=== PATIENT | male | born 1955 | race Two or more races ===

== ENCOUNTER 2025-05-07 05:54 | Emergency (ER) | payer MEDICARE, MEDICAID, SELFPAY ==
[2025-05-07] VITALS (18 sets, daily range): BP systolic 88–111; BP diastolic 49–70; PULSE 82–89; RESP 12–18; TEMP 36.4–36.9; O2SAT 96–100; BMI 25.1
--- NOTE | 2025-05-07 06:20 | XR_ITS ---
Examination: AP chest single view Technique one AP portable semiupright chest single view Date and time: May 07, 2025, 0628 hrs. Indications: Shortness of breath today Findings: Mild prominence left ventricle Transcatheter aortic valve Transvenous dual-chamber bipolar cardiac leads satisfactory position Prominent vascular congestion with early septal edema Prominent osteopenia Impression: Early heart failure
--- NOTE | 2025-05-07 06:21 | PD.EDADULT ---
ED General RME/HPI General Chief complaint: Shortness of Breath/Dyspnea Stated complaint: SOB Time Seen by Provider: 05/07/25 06:09 Arrival date/time: 05/07/25 05:54 RME / HPI RME / HPI narrative: 69-year-old male here for evaluation of syncopal episode while having dialysis this morning. Per EMS report patient was having dialysis just started when he was noted to drop his pressure down to the 60s and become unresponsive. This lasted for about 4 minutes prior to arrival of EMS. Upon arrival of EMS he was on nasal cannula O2, GCS of 6, shallow respirations, they briefly bagged him before patient started to come around within another 3 to 4 minutes. Patient had been given 1250 mL of saline up to this point which was stopped at that time. Patient then brought in for evaluation. Patient himself notes that he is feeling well at this time, does not remember what happened, is having no symptoms. Notes that he is not on oxygen at home. Related Data Home Medications ?Medication ?Instructions ?Recorded ?Confirmed midodrine 10 mg tablet 10 mg PO TID 10/21/20 05/03/23 diphenhydramine HCl 25 mg capsule 25 mg PO QPM 11/29/22 05/03/23 (Banophen) sucroferric oxyhydroxide 500 mg 500 mg PO TID 12/03/22 05/03/23 chewable tablet (Velphoro) Allergies Allergy/AdvReac Type Severity Reaction Status Date / Time No Known Allergies Allergy Verified 05/01/23 12:07 Review of Systems Review of Systems Systems Reviewed: All systems reviewed, normal except as documented Past Medical History Past Medical History Comments PMH COMMENT: End-stage renal disease on dialysis, mitral valve stenosis, third-degree AV block, diverticulosis ED Exam Narrative Physical exam: Constitutional: Awake, alert, nontoxic, no acute distress HEENT: Normocephalic, atraumatic, extraocular movements intact. Neck: Supple CV: Regular rate and rhythm, no murmurs/rubs/gallops Lungs: Rales noted to bilateral mid to lower lung hay Abd: Soft, NT, ND, colostomy present to left lower abdomen Extremities: No deformities, no edema noted Neuro: AAOx3, no acute neuro deficit noted. Skin: Warm, dry, intact Course Course Course Narrative: 619h: 69-year-old male here for evaluation of a syncopal episode that occurred during dialysis. It appears that patient blood pressure dropped causing the syncope and as he was resuscitated his blood pressure came back up and mentation improved back to baseline. He was given over a liter of IV fluids and did not get dialysis done however. On initial exam he does have crackles to mid to lower lung hay and his sats are noted to be low to mid 80s on room air. He is not on oxygen at home. Will require dialysis. Will notify nephrology regarding same to see if we can get dialysis done today. 1600h: Patient has returned from dialysis, no further complaints, stable condition, will DC home. Quality Measures none Orders Category Date Time Status Hemodialysis Urgent Care 05/07/25 11:48 Active Insert IV NOW Care 05/07/25 06:20 Active Consult to Nephrology Stat Cons 05/07/25 12:22 Ordered XR chest 1V portable Stat Exams 05/07/25 06:20 Completed CBC Stat Lab 05/07/25 07:10 Completed CMP [Comprehensive Metabolic Panel] Stat Lab 05/07/25 07:10 Completed Magnesium Stat Lab 05/07/25 07:10 Completed Albumin Human-Kjda 25% Ivpb [Albuminex 25% Ivpb] Med 05/07/25 12:22 Active 25 gm in 100 ml IV PRN Epoetin Paul-Epbx Inj [Retacrit Inj] Med 05/07/25 14:30 Discontinued 10,000 unit SC X1 ONE Vital Signs Vital signs: Vital Signs Temperature 97.6 F 05/07/25 06:19 Pulse Rate 84 05/07/25 06:19 Respiratory Rate 16 05/07/25 06:19 Blood Pressure 89/62 L 05/07/25 06:19 Pulse Oximetry (%) 97 05/07/25 06:19 Oxygen Delivery Method Nasal Cannula 05/07/25 06:19 Oxygen Flow Rate 3 05/07/25 06:19 Discharge Plan Plan Patient Disposition: HOME (Self Care) Patient condition on transfer: Stable Prescriptions/Referrals Prescriptions/Med Rec: No Action midodrine 10 mg Tablet 10 mg PO TID Rx Instructions: held if sbp greater than 100 diphenhydramine HCl [Banophen] 25 mg capsule 25 mg PO QPM Patient Comments: TOME 1 C PSULA POR V A ORAL EN LA NOCHE CUANDO SEA NECESARIO FOR ALLERGY SYMPTOMS Velphoro 500 mg Tablet,Chewable 500 mg PO TID Rx Instructions: with meals Referrals: No Primary/Family,Physician [Primary Care Provider] - In 1 week Problem List Clinical Impression: Hypotension of hemodialysis, ESRD (end stage renal disease) on dialysis Patient/Caregiver Discharge Instructions Education Materials: ED Diet for Chronic Kidney Disease, ED Low Blood Pressure, All Causes Additional Instructions: Some general health principles that can help you are the [employer] START principles: Nutrition (eat a plant-based diet, avoiding meats in general, avoiding highly processed foods) Exercise (Daily exercise/walks as tolerated) Water (Drink adequate fresh water to maintain hydration, concentrating on water rather than on soda, coffee, tea, juice, etc for hydration) [place] (Spend time - 15-20 minutes or so with skin exposed in the beveller operator and late evening sun for Vitamin D health benefits) [place] (Avoid alcohol, illicit drugs, caffeinated beverages, smoking, etc) Air (Deep breathing exercises in the early mornings in fresh air) Rest (Adequate rest at night, going to bed a few hours before midnight and avoiding all screens/television/loud music in the time right before going to bed, also avoiding heavy meals just prior to going to bed) Trust in God (Spend time daily in Bible study and prayer - health benefits in contemplation of God's true character) Additional resources that can benefit: www.[employer], look under resources and seminars. Print Language: Romanian Stand Alone Forms: Georgina Award Info., Patient Portal Info Letter MDM Clinical Information Provided by: patient and EMS Medical Records reviewed [facility] and EMS Meds/Rx considered, not ordered None Labs/Rad/Tests considered, not ordered None Chronic Illness/Social Conditions which may negatively complicate care or outcome(s)-explain: CHF/CAD/Cardiac illness Labs Labs: see narrative above Imaging Imaging interpretation: see narrative above Medication Administration(s) Medication Administration History Albumin Human (Albuminex 25% Ivpb) 25 gm in 100 mls @ 100 mls/min IV PRN PRN PRN Reason: DIALYSIS Stop: 06/06/25 12:21 Last Admin: 05/07/25 12:48 Dose: 100 mls/min Documented By: MM Discontinued Medications Epoetin Paul (Epoetin Paul-Epbx Inj 10,000 Unit/Ml Vial (Esrd)) 10,000 unit SC X1 ONE Stop: 05/07/25 14:31 Last Admin: 05/07/25 15:19 Dose: 10,000 unit Documented By: MM See above Diagnosis Diagnoses ruled out and/or further discussions: Hypotension of hemodialysis ESRD
[2025-05-07 07:24] LABS: Basophils # (Auto) 0.0 Thou/mm3 (0.0-0.2); Basophils % (Auto) 0 % (0-2.5); Eosinophils # (Auto) 0.1 Thou/mm3 (0.0-0.5); Eosinophils % (Auto) 1 % (0-10); Hematocrit 29.9 % (41.0-53.0); Hemoglobin 10.5 g/dL (13.5-16.0); Immature Granulocytes Auto 0.03 Thou/mm3 (0.00-0.00); Lymphocytes # (Auto) 0.7 Thou/mm3 (1.0-4.8); Lymphocytes % (Auto) 9 % (10-50); Mean Corpuscular HGB Conc 35.1 g/dl (31.0-37.0); Mean Corpuscular Hemoglobin 34.7 pg (25.0-35.0); Mean Corpuscular Volume 99 fL (80-100); Monocytes # (Auto) 0.4 Thou/mm3 (0.0-0.8); Monocytes % (Auto) 5 % (0-12); Neutrophils # (Auto) 7.1 Thou/mm3 (1.8-7.7); Neutrophils % (Auto) 85 % (37-80); Nucleated Red Blood Cell # 0.00 Thou/mm3 (0.00-0.00); Nucleated Red Blood Cell % 0 /100 WBC (0); Platelet Count 100 Thou/mm3 (140-440); RDW Standard Deviation 44.6 fL (35.1-43.9); Red Blood Count 3.03 Miln/mm3 (4.50-5.90); White Blood Count 8.3 Thou/mm3 (3.8-10.6)
[2025-05-07 07:52] LABS: Alanine Aminotransferase 58 U/L (10-49); Albumin, Serum 3.6 gm/dL (3.4-4.8); Albumin/Globulin Ratio 1.3 (1.2-2.2); Alkaline Phosphatase 611 U/L (46-116); Anion Gap 16 (7-16); Aspartate Amino Transferase 43 U/L (0-34); BUN/Creatinine Ratio 7 Ratio (12-20); Bilirubin,Total 0.3 mg/dL (0.3-1.2); Blood Urea Nitrogen 62 mg/dL (9-23); Calcium 9.3 mg/dL (8.3-10.6); Calcium (Corrected) 9.6 mg/dL (8.5-10.1); Carbon Dioxide 23.2 mMol/L (20.0-31.0); Chloride 104 mMol/L (98-107); Creatinine (Component) 9.2 mg/dL (0.6-1.3); Estimated Creatinine Clearance 7.5 mL/min (>60); Globulin 2.7 gm/dL (2.3-3.5); Glucose 144 mg/dL (74-106); Magnesium 2.1 mg/dL (1.6-2.6); Osmolality,Calculated 305 (275-295); Potassium 4.0 mMol/L (3.4-5.1); Sodium 143 mMol/L (136-145); Total Protein 6.3 gm/dL (5.7-8.2); eGFR 6 See Note
--- NOTE | 2025-05-07 10:21 | PD.NEPHCONS ---
History of Present Illness Data of Consult Consult date: 05/07/25 Primary Care Provider: Physician No Primary/Family Consult Narrative Reason for consult: ESRD, need for dialysis History of present illness: Mr. Wheeler is a 69-year-old gentleman with past medical history of ESRD( Under Dr. Pineda- [facility]) , multiple abdominal surgeries with colostomy bag, coronary artery disease, severe mitral stenosis, third-degree A-V block status post pacemaker and hypertension who came into the ED as he had an episode of syncope at dialysis and was brought into the emergency department by paramedics from the dialysis unit. Spoke to dialysis center. Apparently he received only 10 minutes of dialysis and had air in the line and they had to stop dialysis 2 minutes patient noted to have syncopal episode and he was brought to the ED. In the ED he ruled out for a cardiac and neurological events. Renal consultation requested for need for dialysis. Patient currently seen on dialysis. Please see flowsheet for further details Home medications included Benadryl, midodrine, Velphoro. Hemoglobin 10.5, platelets 100. Sodium 143, potassium 4, BUN 62, creatinine 9.2, calcium 9.6, LFTs slightly elevated, albumin 3.6 cc:: cc: Review of Systems Review of Systems Narrative Review of Systems: CONSTITUTIONAL: Patient denies any fever, chills. HEENT: Denies any visual disturbances or hearing problems. CARDIOVASCULAR: Patient denies any chest pain, shortness of breath, swelling in the lower extremities. PULMONARY: Patient denies any shortness of breath, cough. GASTROINTESTINAL: Patient denies any abdominal pain, constipation, nausea, vomiting, diarrhea. Patient has Colostomy bag GENITOURINARY: Patient denies any urinary symptoms of burning or frequency or hematuria, denies any form in the urine. SKIN: Denies any rash. MUSCULOSKELETAL: Denies any muscular skeletal problems of joint pains. NEUROLOGICAL: Denies any neurological problems of strokes, seizures or confusion. Denies any memory problems. PSYCHIATRIC: Denies any depression or anxiety. LYMPHATICS : No lymphadenopathy Past Medical History Past Medical History NEUROLOGIC: Negative Neurological Disorders or Seizures CARDIAC: Positive Cardiac Disorders, Myocardial Infarction, Heart Murmur, Hypercholesterolemia, Hypertension and Hypotension; Negative Congestive Heart Failure, Edema, Cellulitis or Varicose Veins RESPIRATORY: Positive Sleep Apnea (resolved with weight loss); Negative Chronic Obstructive Pulmonary Disease (COPD), Asthma, Pneumonia or Tuberculosis GASTROINTESTINAL: Positive Gastrointestinal Disorders and Obstructive Bowel (colostomy left); Negative Hepatitis or Diverticulosis GENITOURINARY: Positive Genitourinary Disorders (fistula left arm), Renal Disease and Dialysis (sunday, , saturdays); Negative Kidney Stones REPRODUCTIVE: Negative Fibroids MUSCULOSKELETAL: Positive Musculoskeletal Disorders and Gout (resolved) ENT: Positive Cataracts ENDOCRINE: Negative Endocrine Disorders, Diabetes Mellitus Type 1 or Diabetes Mellitus Type 2 HEMATOLOGIC: Positive Blood Disorders and Anemia; Negative Sickle Cell Disease OTHER HISTORY: Positive Hospitalization, Blood Transfusions, Chicken Pox, Measles and Mumps; Negative Autoimmune Disease, Shingles, Falls, Blood Transfusion Reaction, Anesthesia Reactions, Organ Transplant, Chemotherapy, Radiation Therapy or Cancer Family History FAMILY HISTORY: Negative Family Psychiatric Problems, Family Respiratory Disorders, Family Cardiac Disorders, Family Gastrointestinal Problems, Family Cancer, Family Surgery or Family Anesthesia Reaction Surgical History SURGICAL: Positive Cardiac Surgery, Vascular Surgery, Pacemaker, Abdominal Surgery and Bowel Surgery (colostomy in left abdomen 2018); Negative Endocrine Surgery, Ear Surgery, Nephrectomy, Joint Replacement, Neurologic Surgery, Mastectomy, Vasectomy or Organ Transplant Social History SMOKING STATUS: Never smoker SECOND HAND EXPOSURE: No SUBSTANCE USE: does not use Past Medical History Comments PMH COMMENT: End-stage renal disease on dialysis, mitral valve stenosis, third-degree AV block, diverticulosis Meds Home Medications and Allergies Home Medications ?Medication ?Instructions ?Recorded ?Confirmed ?Type midodrine 10 mg tablet 10 mg PO TID 10/21/20 05/03/23 History diphenhydramine HCl 25 mg capsule 25 mg PO QPM 11/29/22 05/03/23 History (Banophen) sucroferric oxyhydroxide 500 mg 500 mg PO TID 12/03/22 05/03/23 History chewable tablet (Velphoro) Allergies Allergy/AdvReac Type Severity Reaction Status Date / Time No Known Allergies Allergy Verified 05/01/23 12:07 Exam Vital Signs Temp Pulse Resp BP Pulse Ox O2 Del Method O2 Flow Rate 36.4 C 89 16 111/67 100 Nasal Cannula 4 05/07/25 07:48 05/07/25 07:48 05/07/25 07:48 05/07/25 07:48 05/07/25 07:48 05/07/25 07:48 05/07/25 07:48 Narrative Exam GEN: Well developed, well nourished man in NAD-on dialysis HEENT: NCAT, anicteric conjunctivae CV: RRR, normal S1 and S2, no M/R/G Lungs: CTAB ABD: BS+, non-tender, non-distended, colostomy bag in place with soft stool Skin: No rashes, lesions, or erythema Ext: No edema Neuro: Alert and oriented x3 Results Labs 05/07/25 07:10 05/07/25 07:10 Labs: Short CBC 05/07/25 Range/Units 07:10 WBC 8.3 (3.8-10.6) Thou/mm3 Hgb 10.5 L (13.5-16.0) g/dL Hct 29.9 L (41.0-53.0) % Plt Count 100 L (140-440) Thou/mm3 BMP 05/07/25 07:10 Sodium 143 Potassium 4.0 Chloride 104 Carbon Dioxide 23.2 BUN 62 H Creatinine 9.2 H* Glucose 144 H Calcium 9.3 Liver Function 05/07/25 Range/Units 07:10 Total Bilirubin 0.3 (0.3-1.2) mg/dL AST 43 H (0-34) U/L ALT 58 H (10-49) U/L Alkaline Phosphatase 611 H (46-116) U/L Albumin 3.6 (3.4-4.8) gm/dL Assessment & Plan Additional Assessment & Plan Additional Plan: Mr. Wheeler is a 67-year-old male with past medical history of ESRD, multiple abdominal surgeries with ileostomy bag, NH, severe mitral stenosis, third-degree A-V block status post pacemaker and hypertension who came into the ED from dialysis unit for a syncopal episode Syncope -In setting of hypotension and ESRD Currently asymptomatic. 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 Tolerating dialysis without any problems. Hemodialysis for 3 hours, 2K, ultrafiltration 2-3 L, Epogen 6000, no heparin ordered. Plan of care discussed with the dialysis nurse. Please see dialysis flowsheet for further details. Thank you Dr. Cabrera for the consult.
[2025-05-07] MEDS: ALBUMIN HUMAN-KJDA 25% IVPB 25 GM/100 ML BTL IV (12:48)
[2025-05-07] MEDS: EPOETIN ALFA-EPBX INJ 10,000 UNIT/ML VIAL (ESRD) 10000 UNIT SC (15:19)
== END 2025-05-07 17:24 | disposition home or self-care (01) ==
PROVIDERS: Emergency Provider Family Medicine
DX: I95.3 Hypotension of hemodialysis (principal); N18.6 End stage renal disease; Z99.2 Dependence on renal dialysis
CPT/HCPCS: 36415; 71045; 80053; 83735; 85025; 90935; 96372; 99284; P9047; Q5105; G0257; P0947